=== PATIENT | female | born 1935 | race Caucasian/White ===

== ENCOUNTER 2016-11-19 20:28 | Emergency (ER) | payer OTHER ==
[~2016-11-19] VITALS: Ht 170.2 cm; Wt 76.5 kg
[~2016-11-19 20:28] MED LIST: ESTR1TAB23 PO; FLUT16SP24 NASAL; HYDR12.58 PO; LISI20TA11 PO; LORA0.5T PO; METO50TA16 PO
[2016-11-19 20:54] VITALS: Ht 170.2 cm; Wt 76.5 kg
--- NOTE | 2016-11-19 23:30 | RADRPT ---
PROCEDURE: XR Hand. CLINICAL INDICATION: Fourth finger swelling. TECHNIQUE: Three views of the left hand. COMPARISON: None available. FINDINGS: No fracture or dislocation is identified. The joint spaces are preserved. There is soft tissue swell ing along the fourth finger. IMPRESSION: 1. No fracture or dislocation of the left hand. RPTAT: HTAR .Tony Monte MD, MD Date Time Electronically viewed and signed by .Tony Monte MD, on 11/19/2016 23:29 .R/
--- NOTE | 2016-11-19 23:44 | ERD ---
ER Documentation Chief Complaint Date/Time DATE: 11/19/16 TIME: 23:42 Chief Complaint gardening yesterdday something bite her ring finger, swelling, redness HPI 81-year-old female presents with swelling of her left ring finger. She states she was gardening yesterday and she thinks a bug may have bit her and then she got swelling around the finger and now there is swelling there and she is unable to take her ring off. There is no redness, no bleeding or drainage. No numbness or tingling. ROS All systems reviewed and are negative except as per history of present illness. Medications Home Meds Reported Medications Fluticasone Propionate* (Flonase* Nasal) 50 Mcg/[place] - 16 Gm [place].susp, 1 SPRAY NASAL BID, SPRAY (TO EACH NOSTRIL) 10/23/14 Metoprolol Succinate* (Toprol XL*) 50 Mg Tab.er.24h, 50 MG PO DAILY, TAB 10/23/14 Lorazepam* (Lorazepam*) 0.5 Mg Tablet, 0.5 MG PO DAILY Y for ANXIETY, TAB 10/23/14 Hydrochlorothiazide* (Hydrochlorothiazide*) 12.5 Mg Tablet, 12.5 MG PO DAILY, TAB 10/23/14 Estradiol* (Estrace*) 1 Mg Tablet, 1 MG PO DAILY, TAB 10/23/14 Lisinopril* (Lisinopril*) 20 Mg Tablet, 20 MG PO DAILY, TAB 10/23/14 Allergies Allergies: Coded Allergies: acetaminophen (Verified Allergy, Unknown, 07/07/16) PMhx/Soc Medical and Surgical Hx: pt denies Surgical Hx History of Surgery: No Anesthesia Reaction: No Hx Neurological Disorder: No Hx Respiratory Disorders: No Hx Cardiac Disorders: Yes (htn) Hx Psychiatric Problems: No Hx Miscellaneous Medical Probl: No Hx Alcohol Use: No Hx Substance Use: No Hx Tobacco Use: No Smoking Status: Never smoker FmHx Family History: No diabetes Physical Exam Vitals Vital Signs Date Time Temp Pulse Resp B/P Pulse Ox O2 Delivery O2 Flow Rate FiO2 11/19/16 20:54 98.6 95 18 180/75 96 Physical Exam General: well developed, well nourished, alert, nontoxic, no distress Head: normocephalic, atraumatic Neck: Supple, nontender, no lymphadenopathy, no midline tenderness Respiratory: Clear to auscaultation bilaterally, speaks in full sentences, no use of accesory muscles or labored breathing, no rales, ronchi, or wheezing Cardiovascular: RRR, No murmurs Extremities left ring finger has swelling just past her ring, no erythema, no warmth, full range of motion in the finger, sensation to light touch intact, capillary refill less than 2 seconds, no bony abnormalities Procedures/MDM 81-year-old has swelling on her left ring finger after possible insect bite. No evidence of infection and she is neurovascularly intact. The rings were removed and x-ray was ordered which was unremarkable. Both myself and my supervising physician Dr. Beltrand the patient and we agree she is suitable for outpatient management. Recommended this patient follow up with her primary care doctor within 48 hours or return to the emergency room for any worsening of symptoms. However this time I do believe there is suitable for outpatient management. I answered all their questions and they agreed with the plan and were discharged home. Departure Diagnosis: Primary Impression: Finger swelling Condition: Stable Patient Instructions: Finger Contusion Additional Instructions: Call your primary care doctor TOMORROW for an appointment during the next 1-2 days.See the doctor sooner or return here if your condition worsens before your appointment time. RICHMOND BOONE PA-C November 19, 2016 23:44
== END 2016-11-19 23:47 | disposition home or self-care (01) ==
LOC: FTE 20:28
DX: M79.89 Other specified soft tissue disorders (principal); I10 Essential (primary) hypertension

== ENCOUNTER 2017-04-02 12:21 | Emergency (ER) | payer OTHER ==
[~2017-04-02] VITALS: Ht 167.6 cm; Wt 73.5 kg
[~2017-04-02 12:21] MED LIST changes: +METO-319 PO; -METO50TA16 PO
[2017-04-02 12:22] VITALS: Ht 167.6 cm; Wt 73.5 kg
[2017-04-02] MEDS ORDERED: IBUPROFEN 800 MG TAB PO ONE (14:00)
[2017-04-02] MEDS ORDERED: traMADol 50 MG TAB PO ONE (14:00)
--- NOTE | 2017-04-02 14:05 | RADRPT ---
PROCEDURE: CT head without intravenous contrast CLINICAL INDICATION: Headache. COMPARISON: CT from 10/23/2014. TECHNIQUE: Axial CT images from skull base to vertex with coronal and sagittal reconstructions. DOSE: The estimated administered radiation dose was CTDI vol = 44 mGy. DLP = 720 mGy-cm. One or mor e of the following dose reduction techniques were used: automated exposure control, adjustment of th e mA and/or kV according to patient size, or use of iterative reconstruction. FINDINGS: Parenchyma: No acute hemorrhage, large territorial infarction, or mass. Moderate amount of periventr icular and subcortical white matter hypodensity, a nonspecific finding often associated with chronic microangiopathy. Ventricles: Mild generalized volume with proportionate ex vacuo ventricular dilation. Extra-axial spaces: No herniation or midline shift. Paranasal sinuses: Clear. Mastoids and middle ears: Clear. Visualized orbits: Normal. Vessels: Mild calcified atherosclerotic arterial plaque. Bones: Normal. Extracranial soft tissues: Normal. Additional comment: None. IMPRESSION: 1. No acute intracranial abnormality. 2. Chronic senescent findings characterized by volume loss and white matter changes. RPTAT: [facility] Physician Chato Date Time Electronically viewed and signed by Physician Chato on 04/02/2017 14:04 /
[2017-04-02] MEDS ORDERED: LISI1TAB6 PO (14:15)
[2017-04-02] MEDS ORDERED: SIMV20TA PO (14:16)
[2017-04-02] MEDS ORDERED: ESCI20TA38 PO (14:16)
[2017-04-02] MEDS ORDERED: AMLO5TAB4 PO (14:16)
[2017-04-02] MEDS ORDERED: VITAMIN B PO (14:19)
[2017-04-02] MEDS ORDERED: HYDR-902 PO (15:00)
--- NOTE | 2017-04-02 15:10 | ERD ---
ER Documentation Chief Complaint Date/Time DATE: 04/02/17 TIME: 15:02 Chief Complaint HEADACHE ON & OFF X 3 YEARS. TOOK ADVIL AROUND 1200 TODAY HPI This is a 81-year-old female complains of headaches located bitemporal region that is a throbbing pressure. She says she has had these headaches for years and she is here just because she wants to get it checked out again. Had an MRI last year that was negative. She says they tend to occur multiple times during the week she has no photophobia phonophobia no focal neurological complaints no visual change no speech change no vomiting fever no neck pain. No loss of vision or visual changes. ROS All systems reviewed and are negative except as per history of present illness. Medications Home Meds Active Scripts Hydrocodone/Acetaminophen ([place] 10-325 Tablet) 1 Each Tablet, 1 TAB PO Q6H Y for PAIN, #20 TAB Prov:ALISHA FULLER DO 04/02/17 Reported Medications [Vitamin B12 5000MCG] No Conflict Check, 1 ML PO DAILY 04/02/17 Amlodipine Besylate* (Norvasc*) 5 Mg Tablet, 5 MG PO DAILY, TAB 04/02/17 Escitalopram Oxalate* (Escitalopram Oxalate*) 20 Mg Tablet, 20 MG PO DAILY, #30 TAB 04/02/17 Simvastatin* (Zocor*) 20 Mg Tablet, 20 MG PO QOTHER DAY, #30 TAB 04/02/17 Lisinopril/Hydrochlorothiazide (Lisinopril-Hctz 20-12.5 mg Tab) 1 Each Tablet, 1 EACH PO DAILY, TAB 04/02/17 Fluticasone Propionate* (Flonase* Nasal) 50 Mcg/[place] - 16 Gm [place].susp, 1 SPRAY NASAL QAM, SPRAY (TO EACH NOSTRIL) 10/23/14 Metoprolol Succinate* (Toprol XL*) 50 Mg Tab.er.24h, 50 MG PO DAILY, TAB 10/23/14 Lorazepam* (Lorazepam*) 0.5 Mg Tablet, 0.5 MG PO DAILY Y for ANXIETY, TAB 10/23/14 Estradiol* (Estrace*) 1 Mg Tablet, 1 MG PO DAILY, TAB 10/23/14 Discontinued Reported Medications Hydrochlorothiazide* (Hydrochlorothiazide*) 12.5 Mg Tablet, 12.5 MG PO DAILY, TAB 10/23/14 Lisinopril* (Lisinopril*) 20 Mg Tablet, 20 MG PO DAILY, TAB 10/23/14 Allergies Allergies: Coded Allergies: No Known Allergy (Unverified , 04/02/17) PMhx/Soc History of Surgery: No Anesthesia Reaction: No Hx Neurological Disorder: No Hx Respiratory Disorders: No Hx Cardiac Disorders: Yes (htn, mitral valve prolapse) Hx Psychiatric Problems: No Hx Miscellaneous Medical Probl: Yes (neuropathy) Hx Alcohol Use: No Hx Substance Use: No Hx Tobacco Use: No Smoking Status: Never smoker FmHx Family History: No coronary disease Physical Exam Vitals Vital Signs Date Time Temp Pulse Resp B/P Pulse Ox O2 Delivery O2 Flow Rate FiO2 04/02/17 13:20 98.0 75 20 125/84 98 Room Air 04/02/17 12:22 98.0 91 20 147/67 95 Physical Exam Const: Well-developed, well-nourished Head: Atraumatic, normocephalic Eyes: Normal Conjunctiva, PERRLA, EOMI, normal sclera, no nystagmus ENT: Normal External Ears, Nose and Mouth, moist mucus membranes. Neck: Full range of motion. No meningismus, no lymphadenopathy. Resp: Clear to auscultation bilaterally, no wheezing, rhonchi, rales Cardio: Regular rate and rhythm, no murmurs, S1 S2 present Abd: Soft, non tender x 4, non distended. Normal bowel sounds, no guarding or rebound, no pulsitile abdominal masses or bruits Skin: No petechiae or rashes, no ecchymosis , no maculopapular rash Back: No midline or flank tenderness Ext: No cyanosis, or edema, FROM x 4, normal inspection, neurovascularly intact x 4 Neur: Awake and alert, STR 5/5 x 4, sensation intact x 4, no focal findings, cerebellum intact Psych: Normal Mood and Affect Results 24 hrs Current Medications Medications (Trade) Dose Ordered Sig/Rosette Route PRN Reason Start Time Stop Time Status Last Admin Dose Admin Ibuprofen (Motrin) 800 mg ONCE ONCE PO 04/02/17 14:00 04/02/17 14:01 DC 04/02/17 13:48 Tramadol HCl (Ultram) 50 mg ONCE ONCE PO 04/02/17 14:00 04/02/17 14:01 DC 04/02/17 13:48 Procedures/MDM PROCEDURE: CT head without intravenous contrast CLINICAL INDICATION: Headache. COMPARISON: CT from 10/23/2014. TECHNIQUE: Axial CT images from skull base to vertex with coronal and sagittal reconstructions. DOSE: The estimated administered radiation dose was CTDI vol = 44 mGy. DLP = 720 mGy-cm. One or more of the following dose reduction techniques were used: automated exposure control, adjustment of the mA and/or kV according to patient size, or use of iterative reconstruction. FINDINGS: Parenchyma: No acute hemorrhage, large territorial infarction, or mass. Moderate amount of periventricular and subcortical white matter hypodensity, a nonspecific finding often associated with chronic microangiopathy. Ventricles: Mild generalized volume with proportionate ex vacuo ventricular dilation. Extra-axial spaces: No herniation or midline shift. Paranasal sinuses: Clear. Mastoids and middle ears: Clear. Visualized orbits: Normal. Vessels: Mild calcified atherosclerotic arterial plaque. Bones: Normal. Extracranial soft tissues: Normal. Additional comment: None. IMPRESSION: 1. No acute intracranial abnormality. 2. Chronic senescent findings characterized by volume loss and white matter changes. RPTAT: HLG Physician Chato Date Time Electronically viewed and signed by Physician Chato on 04/02/2017 14: 04 LG/ CC: ALISHA FULLER DO Patient's pain is much better. Will discharge home follow up with her family physician will discharge with [place]. Included a list of foods to avoid which are triggers for headache Departure Diagnosis: Primary Impression: Headache Headache type: unspecified Headache chronicity pattern: chronic headache Intractability: not intractable Qualified Code: R51 - Chronic nonintractable headache, unspecified headache type Condition: Stable Patient Instructions: Self-Care for Headaches Referrals: SADIA SANTOYO (PCP) ALISHA FULLER DO Apr 02, 2017 15:10
[2017-04-02 15:22] VITALS: BP 123/85; PULSE 79; RESP 20; TEMP 98
[2017-04-03] MEDS ORDERED: HYDR-902 PO (17:14)
== END 2017-04-02 15:24 | disposition home or self-care (01) ==
LOC: E/R 12:21
DX: R51 Headache (principal); I10 Essential (primary) hypertension; R40.2142 Coma scale, eyes open, spontaneous, at arrival to emergency department; R40.2252 Coma scale, best verbal response, oriented, at arrival to emergency department; R40.2362 Coma scale, best motor response, obeys commands, at arrival to emergency department
CPT/HCPCS: 70450

== ENCOUNTER 2017-04-03 15:57 | Emergency (ER) | payer OTHER ==
[~2017-04-03] VITALS: Ht 172.7 cm; Wt 75.0 kg
[~2017-04-03 15:57] MED LIST changes: +AMLO5TAB4 PO; +ESCI20TA38 PO; +HYDR-902 PO; -HYDR12.58 PO; +LISI1TAB6 PO; -LISI20TA11 PO; +SIMV20TA PO; +VITAMIN B PO
[2017-04-03 16:06] VITALS: Ht 172.7 cm; Wt 75.0 kg
[2017-04-03 16:35] VITALS: BP 129/63; PULSE 76; RESP 15
[2017-04-03] MEDS ORDERED: HYDR-902 PO (17:14)
--- NOTE | 2017-04-03 17:28 | ERD ---
ER Documentation Chief Complaint Date/Time DATE: 04/03/17 TIME: 17:24 Chief Complaint burning up inside, something is wrong need to be admitted. facial pain 04/17 HPI This 81-year-old female who was seen by me yesterday for chronic recurrent headaches likely migraine. She says she is back again because she had some burning in her posterior cervical region bilaterally this morning but is now resolved. She says she felt a burning warm sensation that lasted a few minutes and went away no numbness weakness no visual or speech change. Patient says that her headaches today are better. She says she wants to be admitted to the hospital to find out why she has his chronic headaches for 2 years. Patient seems anxious about her symptoms ROS All systems reviewed and are negative except as per history of present illness. Medications Home Meds Active Scripts Hydrocodone/Acetaminophen ([place] 10-325 Tablet) 1 Each Tablet, 1 TAB PO Q6H Y for PAIN, #20 TAB Prov:ALISHA FULLER. DO 04/03/17 Hydrocodone/Acetaminophen ([place] 10-325 Tablet) 1 Each Tablet, 1 TAB PO Q6H Y for PAIN, #20 TAB Prov:ALISHA FULLER. DO 04/02/17 Reported Medications [Vitamin B12 5000MCG] No Conflict Check, 1 ML PO DAILY 04/02/17 Amlodipine Besylate* (Norvasc*) 5 Mg Tablet, 5 MG PO DAILY, TAB 04/02/17 Escitalopram Oxalate* (Escitalopram Oxalate*) 20 Mg Tablet, 20 MG PO DAILY, #30 TAB 04/02/17 Simvastatin* (Zocor*) 20 Mg Tablet, 20 MG PO QOTHER DAY, #30 TAB 04/02/17 Lisinopril/Hydrochlorothiazide (Lisinopril-Hctz 20-12.5 mg Tab) 1 Each Tablet, 1 EACH PO DAILY, TAB 04/02/17 Fluticasone Propionate* (Flonase* Nasal) 50 Mcg/[place] - 16 Gm [place].susp, 1 SPRAY NASAL QAM, SPRAY (TO EACH NOSTRIL) 10/23/14 Metoprolol Succinate* (Toprol XL*) 50 Mg Tab.er.24h, 50 MG PO DAILY, TAB 10/23/14 Lorazepam* (Lorazepam*) 0.5 Mg Tablet, 0.5 MG PO DAILY Y for ANXIETY, TAB 10/23/14 Estradiol* (Estrace*) 1 Mg Tablet, 1 MG PO DAILY, TAB 10/23/14 Discontinued Reported Medications Hydrochlorothiazide* (Hydrochlorothiazide*) 12.5 Mg Tablet, 12.5 MG PO DAILY, TAB 10/23/14 Lisinopril* (Lisinopril*) 20 Mg Tablet, 20 MG PO DAILY, TAB 10/23/14 Allergies Allergies: Coded Allergies: No Known Allergy (Unverified , 04/03/17) PMhx/Soc History of Surgery: No Anesthesia Reaction: No Hx Neurological Disorder: No Hx Respiratory Disorders: No Hx Cardiac Disorders: Yes (htn, mitral valve prolapse) Hx Psychiatric Problems: No Hx Miscellaneous Medical Probl: Yes (neuropathy) Hx Alcohol Use: No Hx Substance Use: No Hx Tobacco Use: No Smoking Status: Never smoker FmHx Family History: No coronary disease Physical Exam Vitals Vital Signs Date Time Temp Pulse Resp B/P Pulse Ox O2 Delivery O2 Flow Rate FiO2 04/03/17 16:35 76 15 129/63 96 Room Air 04/03/17 16:06 98.7 88 20 134/64 96 Physical Exam Const: Well-developed, well-nourished Head: Atraumatic, normocephalic Eyes: Normal Conjunctiva, PERRLA, EOMI, normal sclera, no nystagmus ENT: Normal External Ears, Nose and Mouth, moist mucus membranes. Neck: Full range of motion. No meningismus, no lymphadenopathy. Resp: Clear to auscultation bilaterally, no wheezing, rhonchi, rales Cardio: Regular rate and rhythm, no murmurs, S1 S2 present Abd: Soft, non tender x 4, non distended. Normal bowel sounds, no guarding or rebound, no pulsitile abdominal masses or bruits Skin: No petechiae or rashes, no ecchymosis , no maculopapular rash Back: No midline or flank tenderness Ext: No cyanosis, or edema, FROM x 4, normal inspection, neurovascularly intact x 4 Neur: Awake and alert, STR 5/5 x 4, sensation intact x 4, no focal findings, cerebellum intact Psych: Normal Mood and Affect Procedures/MDM This discussed with the patient the need to follow-up with her primary continue our current plan from yesterday patient is anxious and is concerned about transient symptoms that have no clear pathology Departure Diagnosis: Primary Impression: Neck pain Condition: Stable Patient Instructions: Neck Pain, No Trauma ALISHA FULLER DO Apr 03, 2017 17:28
== END 2017-04-03 17:15 | disposition home or self-care (01) ==
LOC: E/R 15:57
DX: M54.2 Cervicalgia (principal); R40.2142 Coma scale, eyes open, spontaneous, at arrival to emergency department; R40.2252 Coma scale, best verbal response, oriented, at arrival to emergency department; R40.2362 Coma scale, best motor response, obeys commands, at arrival to emergency department; I10 Essential (primary) hypertension
CPT/HCPCS: 99283

== ENCOUNTER 2017-05-03 14:30 | Emergency (ER) | payer OTHER ==
[~2017-05-03] VITALS: Wt 72.5 kg
[2017-05-03] MEDS ORDERED: ACETAMINOPHEN 500 MG TAB PO STA (15:20)
--- NOTE | 2017-05-03 15:49 | ERD ---
ER Documentation Chief Complaint Date/Time DATE: 05/03/17 TIME: 15:47 Chief Complaint chills, headache, bodyaches, onset 1 week, no fever, no dizziness, no n/v (ALANNA JOHNSON MD) HPI This 81-year-old female presents with chills and body aches for last week. She has a history of headache but she has had headaches on and off for the last year. She has had normal MRI and CT scans. She denies any urinary complaints. She denies abdominal pain. She has mild body aches. Patient denies any history of smoking. (ALANNA JOHNSON MD) ROS All systems reviewed and are negative except as per history of present illness. (ALANNA JOHNSON MD) Medications Home Meds Active Scripts Cephalexin* (Keflex*) 500 Mg Capsule, 500 MG PO QID for 7 Days, CAP Prov:ALANAN JOHNSON MD 05/03/17 Ibuprofen* (Motrin*) 400 Mg Tab, 400 MG PO Q6, #15 TAB Prov:ALANNA JOHNSON MD 05/03/17 Hydrocodone/Acetaminophen ([place] 10-325 Tablet) 1 Each Tablet, 1 TAB PO Q6H Y for PAIN, #20 TAB Prov:ALISHA FULLER. DO 04/03/17 Hydrocodone/Acetaminophen ([place] 10-325 Tablet) 1 Each Tablet, 1 TAB PO Q6H Y for PAIN, #20 TAB Prov:ALISHA FULLER. DO 04/02/17 Reported Medications [Vitamin B12 5000MCG] No Conflict Check, 1 ML PO DAILY 04/02/17 Amlodipine Besylate* (Norvasc*) 5 Mg Tablet, 5 MG PO DAILY, TAB 04/02/17 Escitalopram Oxalate* (Escitalopram Oxalate*) 20 Mg Tablet, 20 MG PO DAILY, #30 TAB 04/02/17 Simvastatin* (Zocor*) 20 Mg Tablet, 20 MG PO QOTHER DAY, #30 TAB 04/02/17 Lisinopril/Hydrochlorothiazide (Lisinopril-Hctz 20-12.5 mg Tab) 1 Each Tablet, 1 EACH PO DAILY, TAB 04/02/17 Fluticasone Propionate* (Flonase* Nasal) 50 Mcg/[place] - 16 Gm [place].susp, 1 SPRAY NASAL QAM, SPRAY (TO EACH NOSTRIL) 10/23/14 Metoprolol Succinate* (Toprol XL*) 50 Mg Tab.er.24h, 50 MG PO DAILY, TAB 10/23/14 Lorazepam* (Lorazepam*) 0.5 Mg Tablet, 0.5 MG PO DAILY Y for ANXIETY, TAB 10/23/14 Estradiol* (Estrace*) 1 Mg Tablet, 1 MG PO DAILY, TAB 10/23/14 Allergies Allergies: Coded Allergies: No Known Allergy (Unverified , 05/03/17) PMhx/Soc History of Surgery: No Anesthesia Reaction: No Hx Neurological Disorder: No Hx Respiratory Disorders: No Hx Cardiac Disorders: Yes (htn, mitral valve prolapse) Hx Psychiatric Problems: No Hx Miscellaneous Medical Probl: Yes (neuropathy) Hx Alcohol Use: No Hx Substance Use: No Hx Tobacco Use: No (ALANNA JOHNSON MD) Physical Exam Vitals Vital Signs Date Time Temp Pulse Resp B/P Pulse Ox O2 Delivery O2 Flow Rate FiO2 05/03/17 14:38 98.9 85 18 111/61 98 (MICHAEL LANGLEY PA-C) Physical Exam Const: [], Acm-pom-pebetdogy. Head: Atraumatic Eyes: Normal Conjunctiva ENT: Normal External Ears, Nose and Mouth. Neck: Full range of motion..~ No meningismus. Resp: Clear to auscultation bilaterally Cardio: Regular rate and rhythm, no murmurs Abd: Soft, non tender, non distended. Normal bowel sounds Skin: No petechiae or rashes Back: No midline or flank tenderness Ext: No cyanosis, or edema Neur: Awake and alert Psych: Normal Mood and Affect (ALANNA JOHNSON MD) Result Diagram: 05/03/17 1610 05/03/17 1610 Results 24 hrs Laboratory Tests Test 05/03/17 15:35 05/03/17 16:10 Urine Color YELLOW Urine Clarity CLOUDY Urine pH 5.0 Urine Specific [place] 1.019 Urine Ketones NEGATIVEmg/dL Urine Nitrite NEGATIVEmg/dL Urine Bilirubin NEGATIVEmg/dL Urine Urobilinogen NEGATIVEmg/dL Urine Leukocyte Esterase 3+Nasrin/ul Urine Microscopic RBC 5/HPF Urine Microscopic WBC 82/HPF Urine Squamous Epithelial Cells MODERATE/HPF Urine Bacteria FEW/HPF Urine Mucus FEW/HPF Urine Hemoglobin NEGATIVEmg/dL Urine Glucose NEGATIVEmg/dL Urine Total Protein NEGATIVEmg/dl White Blood Count 14.510^3/ul Red Blood Count 4.5810^6/ul Hemoglobin 13.6g/dl Hematocrit 41.6% Mean Corpuscular Volume 90.8fl Mean Corpuscular Hemoglobin 29.7pg Mean Corpuscular Hemoglobin Concent 32.7g/dl Red Cell Distribution Width 13.1% Platelet Count 17044^3/UL Mean Platelet Volume 9.2fl Neutrophils % 73.2% Lymphocytes % 14.9% Monocytes % 9.0% Eosinophils % 1.5% Basophils % 0.8% Nucleated Red Blood Cells % 0.0/100WBC Neutrophils # 10.610^3/ul Lymphocytes # 2.210^3/ul Monocytes # 1.310^3/ul Eosinophils # 0.210^3/ul Basophils # 0.110^3/ul Nucleated Red Blood Cells # 0.010^3/ul Sodium Level 138mmol/L Potassium Level 4.8mmol/L Chloride Level 100mmol/L Carbon Dioxide Level 28mmol/L Anion Gap 15 Blood Urea Nitrogen 26mg/dl Creatinine 1.54mg/dl Glucose Level 108mg/dl Calcium Level 10.4mg/dl Total Bilirubin 0.4mg/dl Direct Bilirubin 0.00mg/dl Indirect Bilirubin 0.4mg/dl Aspartate Amino Transf (AST/SGOT) 23IU/L Alanine Aminotransferase (ALT/SGPT) 33IU/L Alkaline Phosphatase 59IU/L Total Protein 8.0g/dl Albumin 4.2g/dl Globulin 3.80g/dl Albumin/Globulin Ratio 1.10 Current Medications Medications (Trade) Dose Ordered Sig/Rosette Route PRN Reason Start Time Stop Time Status Last Admin Dose Admin Acetaminophen (Tylenol Tab) 500 mg ONCE STAT PO 05/03/17 15:20 05/03/17 15:22 DC 05/03/17 15:59 Cephalexin (Keflex) 500 mg ONCE ONCE PO 05/03/17 16:30 05/03/17 16:31 DC 05/03/17 16:25 DIAGNOSTIC IMAGING REPORT Patient: JAYME IBARRA : 1935 Age: 81 Sex: F MR #: [id number] DOS: 05/03/17 1608 Ordering MD: ALANNA JOHNSON MD Location: [facility] Room/Bed: PROCEDURE: CT Chest. CLINICAL INDICATION: Dyspnea and shortness of breath. Possible left upper lobe nodule TECHNIQUE: CT scan of the chest without contrast was performed on the [employer] volumetric [address] scanner without contrast. Coronal and sagittal reformatted images were obtained from the axial source images. The CTDI vol is 6.65 mGy and the DLP is 263.88 mGy-cm. One or more of the following dose reduction techniques were used: Automated exposure control. Adjustment of the mA and/or kV according to patient size. Use of iterative reconstruction technique. COMPARISON: Chest x-ray from 05/03/[address] chest, abdomen pelvis angiogram from 06/12/2013 FINDINGS: A 2 mm calcified granuloma is seen in the right upper lobe on series 4 image number 35. No other pulmonary nodule is seen. Mild left lower lobe atelectasis is seen. No dense consolidation is seen. The mediastinum and hilum are unremarkable without evidence for mass or lymphadenopathy. The vascular structures of the mediastinum are unremarkable in course and caliber. The heart size is normal without evidence for pericardial thickening or effusion. The axillary regions, subpectoral regions, and supraclavicular regions are all unremarkable. Cystic structures within the liver are once again seen and have not changed significantly. Imaging obtained through the upper abdomen otherwise reveals no acute abnormality. The osseous structures are intact. No osteolytic or osteoblastic lesion is detected. A 5 mm nodule in the left thyroid lobe is seen. IMPRESSION: 1. No CT evidence for acute pathology in the chest. 2. 2 mm calcified granuloma in the right upper lobe. No other pulmonary nodules identified. 3. Cystic structures in the liver again seen which appeared have not changed significantly. RPTAT: HPNM Physician Ashley Date Time Electronically viewed and signed by Jose A Sims Physician on 05/03/2017 17 :13 / CC: ALANNA JOHNSON MD (MICHAEL LANGLEY PA-C) Procedures/MDM Presents with chills for last week of uncertain etiology. She has mild uri symptoms. Chest X-ray 1V Interpreted by me: Soft Tissue: No acute abnormalities Bones: No acute abnormalities Mediastinum/Cardiac Silhouette/Lungs: [No acute abnormalities] possible 8 mm nodule left upper lobe. CBC and CMP urine pending and signed out to Berenice WEBER and supervising ER physician. Patient agreed to CT chest for further evaluation of possible nodule. Patient stable and ambulatory throughout the ED course without signs of respiratory distress, abdominal pain or signs of sepsis or emergent condition. (ALANNA JOHNSON MD) Patient was signed out to me from Dr. Johnson pending results of the CT scan and laboratory workup. Laboratory workup shows a mildly elevated white blood cell count of 14.5. She is not anemic. Platelets are within normal limits. Electrolytes are within normal limits. Creatinine is mildly elevated. Glucose is within normal limits. Liver enzymes are within normal limits. UA does show 3+ leukocyte esterase. Patient will be treated for urinary tract infection as prescribed by Dr. Johnson. CT scan shows no evidence for acute pathology in the chest. There is a 2 mm calcified granuloma in the right upper lobe. No other pulmonary nodules are identified. There is no osteolytic or osteoblastic lesion detected. There is a 5 mm nodule in the left thyroid lobe seen. I have explained the results of the patient. I have explained to her that she needs a follow-up with her primary care doctor for possible referral to specialist. At this time the patient is stable for discharge and outpatient management. Patient should follow up with their PCP in the next 1-2 days. They may return to the emergency department sooner for any persistent or worsening of symptoms. Patient understood and agreed with the plan. (MICHAEL LANGLEY PA-C) Departure Diagnosis: Primary Impression: UTI (urinary tract infection) Urinary tract infection type: acute cystitis Hematuria presence: without hematuria Qualified Code: N30.00 - Acute cystitis without hematuria Additional Impression: Pulmonary nodule Condition: Fair ALANNA JOHNSON MD May 03, 2017 15:49 MICHAEL LANGLEY PA-C May 03, 2017 17:34
[2017-05-03 16:01] LABS: ADD UMIC YES; UR ASCORBIC ACID 40 mg/dL (NEGATIVE); UR BACTERIA FEW /HPF (NONE SEEN); UR BILIRUBIN (Dip) NEGATIVE (NEGATIVE); UR BLOOD (Dip) NEGATIVE (NEGATIVE); UR CLARITY CLOUDY (CLEAR); UR COLOR YELLOW (YELLOW); UR GLUCOSE (Dip) NEGATIVE (NEGATIVE); UR KETONES (Dip) NEGATIVE (NEGATIVE); UR LEUKOCYTE ESTERASE (Dip) 3+ Leu/ul (NEGATIVE); UR MUCUS FEW /HPF (NONE SEEN); UR NITRITE (Dip) NEGATIVE (NEGATIVE); UR RBC 5 /HPF (0-5); UR SPECIFIC GRAVITY (Dip) 1.019 (1.003-1.030); UR SQUAMOUS EPITHELIAL CELL MODERATE /HPF (FEW); UR TOTAL PROTEIN (Dip) NEGATIVE (NEGATIVE); UR UROBILINOGEN (Dip) NEGATIVE (NEGATIVE)
--- NOTE | 2017-05-03 16:03 | RADRPT ---
PROCEDURE: XR Chest 1 View. CLINICAL INDICATION: Shortness of breath. Fever. TECHNIQUE: PA view of the chest was obtained. COMPARISON: October 23, 2014 FINDINGS: The cardiomediastinal silhouette is within normal limits. The lungs are hyperexpanded. Mild intersti tial prominence is seen in both lungs. 8 mm nodular density is identified over the left upper lobe. No consolidations are identified. No pneumothorax is seen. Calcified granuloma is noted in the lef t lower lobe. Osseous structures are intact. IMPRESSION: 8 mm nodular density in the left upper lobe. This could reflect a lung nodule. Further characterizat ion with CT chest is recommended. Calcified granuloma the left lower lobe. Hyperexpanded lungs with diffuse mild interstitial prominence in both lungs. Interstitial prominenc e could be chronic. Findings could reflect COPD. RPTAT: AA .Max Mckeon MD, MD Date Time Electronically viewed and signed by .Max Mckeon MD, MD on 05/03/2017 16:03 .P/
[2017-05-03] MEDS ORDERED: IBUP400T22 PO (16:05)
[2017-05-03] MEDS ORDERED: CEPH-443 PO (16:13)
[2017-05-03 16:29] LABS: BASOPHIL # 0.1 10^3/ul (0.0-0.1); BASOPHILS % 0.8 % (0.0-2.0); EOSINOPHILS # 0.2 10^3/ul (0.0-0.5); EOSINOPHILS % 1.5 % (0.0-7.0); HEMATOCRIT 41.6 % (37.0-47.0); HEMOGLOBIN 13.6 g/dl (12.0-16.0); LYMPHOCYTES # 2.2 10^3/ul (0.8-2.9); LYMPHOCYTES % 14.9 % (15.0-51.0); MEAN CORPUSCULAR HEMOGLOBIN 29.7 pg (29.0-33.0); MEAN CORPUSCULAR HGB CONC 32.7 g/dl (32.0-37.0); MEAN CORPUSCULAR VOLUME 90.8 fl (82.0-101.0); MEAN PLATELET VOLUME 9.2 fl (7.4-10.4); MONOCYTE # 1.3 10^3/ul (0.3-0.9); NEUTROPHIL # 10.6 10^3/ul (1.6-7.5); NEUTROPHILS % 73.2 % (39.0-77.0); PLATELET COUNT 368 10^3/UL (140-415); RED BLOOD COUNT 4.58 10^6/ul (4.20-5.40); RED CELL DISTRIBUTION WIDTH 13.1 % (11.5-14.5); WHITE BLOOD COUNT 14.5 10^3/ul (4.8-10.8)
[2017-05-03] MEDS ORDERED: CEPHALEXIN 500 MG CAP PO ONE (16:30)
[2017-05-03 16:47] LABS: ALBUMIN 4.2 g/dl (3.3-4.9); ALBUMIN/GLOBULIN RATIO 1.1; BILIRUBIN,INDIRECT 0.4 mg/dl (0-1.1); BILIRUBIN,TOTAL 0.4 mg/dl (0.2-1.3); CALCIUM 10.4 mg/dl (8.4-10.2); CREATININE 1.54 mg/dl (0.44-1.00); POTASSIUM 4.8 mmol/L (3.5-5.1)
--- NOTE | 2017-05-03 17:13 | RADRPT ---
PROCEDURE: CT Chest. CLINICAL INDICATION: Dyspnea and shortness of breath. Possible left upper lobe nodule TECHNIQUE: CT scan of the chest without contrast was performed on the [employer] volumetric [address] [facility] without contrast. Coronal and sagittal reformatted images were obtained from the axial source images. The CTDI vol is 6.65 mGy and the DLP is 263.88 mGy-cm. One or more of the following dose reduction techniques were used: Automated exposure control. Adjustment of the mA and/or kV according to patient size. Use of iterative reconstruction technique. COMPARISON: Chest x-ray from 05/03/[address] chest, abdomen pelvis angiogram from 06/12/2013 FINDINGS: A 2 mm calcified granuloma is seen in the right upper lobe on series 4 image number 35. No other pul monary nodule is seen. Mild left lower lobe atelectasis is seen. No dense consolidation is seen. The mediastinum and hilum are unremarkable without evidence for mass or lymphadenopathy. The vascular structures of the mediastinum are unremarkable in course and caliber. The heart size is normal wit hout evidence for pericardial thickening or effusion. The axillary regions, subpectoral regions, an d supraclavicular regions are all unremarkable. Cystic structures within the liver are once again se en and have not changed significantly. Imaging obtained through the upper abdomen otherwise reveals no acute abnormality. The osseous structures are intact. No osteolytic or osteoblastic lesion is d etected. A 5 mm nodule in the left thyroid lobe is seen. IMPRESSION: 1. No CT evidence for acute pathology in the chest. 2. 2 mm calcified granuloma in the right upper lobe. No other pulmonary nodules identified. 3. Cystic structures in the liver again seen which appeared have not changed significantly. RPTAT: HPNM Physician Ashley Date Time Electronically viewed and signed by Physician Ashley on 05/03/2017 17:13 /
[2017-05-03 18:01] VITALS: BP 118/65; PULSE 82; RESP 17; TEMP 98.9
== END 2017-05-03 18:02 | disposition home or self-care (01) ==
LOC: FTE 14:30
DX: N30.00 Acute cystitis without hematuria (principal); R91.1 Solitary pulmonary nodule; I10 Essential (primary) hypertension
CPT/HCPCS: 71010; 71250; 80053; 81001; 85025; 87086

== ENCOUNTER 2018-03-19 11:13 | Emergency (ER) | END 2018-03-19 12:39 | disposition home or self-care (01) ==